=== PATIENT | male | born 1995 | race Caucasian/White ===

== ENCOUNTER 2017-01-19 22:56 | Emergency (ER) | payer SELFPAY ==
[~2017-01-19] VITALS: Ht 162.6 cm; Wt 99.8 kg
[2017-01-19] MEDS ORDERED: CLINDAMYCIN PHO50 GM TOP (23:03)
[2017-01-19] MEDS ORDERED: PEN-VEE K (23:04)
== END 2017-01-20 02:23 | disposition home or self-care (01) ==
LOC: SED 22:56
DX: K04.7 Periapical abscess without sinus (principal); R03.0 Elevated blood-pressure reading, without diagnosis of hypertension; J45.909 Unspecified asthma, uncomplicated
CPT/HCPCS: 99283